=== PATIENT | female | born 1945 | race Caucasian/White ===

== ENCOUNTER 2019-10-15 07:01 | Outpatient (CLI) | payer MEDICARE, OTHER, SELFPAY ==
--- NOTE | ~2019-10-15 | XR_ITS ---
EXAMINATION: XR abdomen/kub 1V INDICATION: Calcium kidney stone TECHNIQUE: Supine view of the abdomen is obtained. COMPARISON: 09/27/2019 FINDINGS: A left internal ureteral stent is in expected position. There is a 2.3 cm stone or cluster of stones in the left kidney lower pole which appears somewhat decreased in density since the compari son examination, possibly due to treatment change. There are possible stone fragments adjacent to the stent projecting at the level of the left L3 transverse process. Multiple pelvic phleboliths are not ed. IMPRESSION: 1. Slight decrease in density of the previously described left kidney stone, likely due to interval t reatment change. Possible stone fragments adjacent to the proximal stent. Reviewed, dictated and finalized at location A. SPORT SPECIALIST IMPRESSION: 1. Slight decrease in density of the previously described left kidney stone, lavern rodriguez due to interval treatment change. Possible stone fragments adjacent to the proximal stent.
== END 2019-10-15 07:02 | disposition home or self-care (01) ==
PROVIDERS: PCP Family Medicine Adolescent Medicine
DX: N20.0 Calculus of kidney (principal)
CPT/HCPCS: 74018

== ENCOUNTER 2020-01-22 14:20 | Outpatient (CLI) | payer MEDICARE, OTHER, SELFPAY ==
--- NOTE | ~2020-01-22 | MM_ITS ---
EXAMINATION: MM screening kami BI w teo HISTORY: Screening mammogram TECHNIQUE: Craniocaudal and mediolateral oblique 3-D tomosynthesis images were obtained and synthetic 2-D images were generated. CAD analysis was submitted and interpreted. COMPARISON: Comparison to multiple prior studies sequentially, with oldest reviewed study dated 12/2015. BREAST PARENCHYMAL COMPOSITION: There are scattered areas of fibroglandular density. FINDINGS: There is no evidence of suspicious mass, calcification, or architectural distortion to sugg est malignancy in either breast. There has been no suspicious interval change. IMPRESSION: 1. No mammographic evidence of malignancy. 2. Recommend routine screening mammography in one year. BI-RADS Category 1: Negative Reviewed, dictated and finalized at location A.
== END 2020-01-22 14:21 | disposition home or self-care (01) ==
LOC: ANHIMG 14:23
PROVIDERS: PCP Family Medicine Adolescent Medicine; Visit Provider Obstetrics & Gynecology
DX: Z12.31 Encounter for screening mammogram for malignant neoplasm of breast (principal)
CPT/HCPCS: 77063; 77067

== ENCOUNTER 2021-01-22 10:36 | Outpatient (CLI) | payer MEDICARE, OTHER, SELFPAY ==
--- NOTE | ~2021-01-22 | MM_ITS ---
EXAMINATION: MM screening kami BI w teo HISTORY: Screening TECHNIQUE: Craniocaudal and mediolateral oblique 3-D tomosynthesis images were obtained and synthetic 2-D images were generated. CAD analysis was submitted and interpreted. COMPARISON: Comparison to multiple prior studies sequentially, with oldest reviewed study dated 12/2015. BREAST PARENCHYMAL COMPOSITION: Breast composed of scattered areas of fibroglandular density FINDINGS: There is no evidence of suspicious mass, calcification, or architectural distortion to sugg est malignancy in either breast. There has been no suspicious interval change. IMPRESSION: 1. No mammographic evidence of malignancy. 2. Recommend routine screening mammography in one year. BI-RADS Category 1: Negative Reviewed, dictated and finalized at location A.
== END 2021-01-22 10:37 | disposition home or self-care (01) ==
LOC: ANHIMG 10:41
PROVIDERS: PCP Family Medicine Adolescent Medicine; Visit Provider Family Medicine Adolescent Medicine
DX: Z12.31 Encounter for screening mammogram for malignant neoplasm of breast (principal)
CPT/HCPCS: 77063; 77067

== ENCOUNTER → 2021-02-09 10:06 | Outpatient (CLI) | payer MEDICARE, OTHER, SELFPAY ==
--- NOTE | ~2021-02-09 | XR_ITS ---
EXAMINATION: XR chest 2V DATE: 02/09/2021 10:25 INDICATION: Shortness of breath. TECHNIQUE: Frontal and lateral views of the chest were obtained. COMPARISON: Chest 2 views 12/08/2010 FINDINGS: The chest demonstrates clear lungs without pneumonia, pleural effusion, or pneumothorax. Th e heart size is normal. IMPRESSION: 1. No acute cardiopulmonary disease. Reviewed, dictated and finalized at location B.
== END ==
PROVIDERS: PCP Family Medicine Adolescent Medicine; Visit Provider Physician Assistant
DX: R06.02 Shortness of breath (principal)
CPT/HCPCS: 71046

== ENCOUNTER 2022-03-26 10:51 | Outpatient (CLI) | payer MEDICARE, OTHER, SELFPAY ==
--- NOTE | ~2022-03-26 | MM_ITS ---
EXAMINATION: MM screening kami BI w teo HISTORY: Screening mammogram, family history of breast cancer in her sister. TECHNIQUE: Craniocaudal and mediolateral oblique 3-D tomosynthesis images were obtained and synthetic 2-D images were generated. CAD analysis was submitted and interpreted. COMPARISON: 01/22/2021, 01/22/2020 BREAST PARENCHYMAL COMPOSITION: There are scattered areas of fibroglandular density. FINDINGS: There is no suspicious mass, calcification, or architectural distortion to suggest malignan cy in either breast. There has been no suspicious interval change. IMPRESSION: 1. No mammographic evidence of malignancy. 2. Recommend routine screening mammography in one year. BI-RADS Category 1: Negative Reviewed, dictated and finalized at location A.
== END 2022-03-26 10:52 | disposition home or self-care (01) ==
LOC: ANHIMG 10:52
PROVIDERS: PCP Family Medicine Adolescent Medicine; Visit Provider Obstetrics & Gynecology
DX: Z12.31 Encounter for screening mammogram for malignant neoplasm of breast (principal)
CPT/HCPCS: 77063; 77067

== ENCOUNTER → 2022-04-21 08:50 | Outpatient (CLI) | payer MEDICARE, OTHER, SELFPAY ==
--- NOTE | ~2022-04-21 | US_ITS ---
EXAMINATION: US aorta DATE: 04/21/2022 09:15 INDICATION: Abdominal aortic aneurysm screening. TECHNIQUE: Grayscale, color Doppler, and pulsed Doppler images of the aorta and common iliac arteries were obtained. COMPARISON: Ultrasound 01/07/2019, CT abdomen and pelvis 05/21/2019 FINDINGS: The aorta is normal in caliber and demonstrates atherosclerosis. The right common iliac artery is nor mal in caliber. The left common iliac artery is normal in caliber. IMPRESSION: 1. Aortic atherosclerosis. No aneurysm. Reviewed, dictated and finalized at location A.
== END ==
PROVIDERS: PCP Family Medicine Adolescent Medicine; Visit Provider Physician Assistant
DX: I70.0 Atherosclerosis of aorta (principal); Z82.49 Family history of ischemic heart disease and other diseases of the circulatory system
CPT/HCPCS: 76775

== ENCOUNTER 2022-10-07 08:15 | Outpatient (CLI) | payer MEDICARE, SELFPAY ==
--- NOTE | ~2022-10-07 | NM_ITS ---
NUCLEAR MEDICINE CARDIAC GATED STRESS TEST: HISTORY: Chest pain. TECHNIQUE: Rest images were obtained following intravenous administration of 10.5 mCi Tc99m Tetrofosm in. The patient was infused intravenously with Lexiscan (regadenoson). Then, 34.6 mCi Tc99m Tetrofosm in was administered intravenously, and stress images were obtained. Data was reconstructed into short axis and horizontal and vertical long axis SPECT images. Gated SPECT images were also obtained. FINDINGS: There is a small area of mild reversibility at the left circumflex distribution near the apex. There is normal left ventricular wall motion. Left ventricular ejection fraction is 74%. IMPRESSION: Small area of mild reversibility at the left circumflex distribution. This could represent an area of ischemia. Consider cardiac catheterization or other additional workup as indicated. Reviewed, dictated and finalized at [facility]. LOPMENT GEOLOGIST IMPRESSION: Small area of mild reversibility at the left circumflex distribution. This coul d represent an area of ischemia. Consider cardiac catheterization or other nam tional workup as indicated.
--- NOTE | 2022-10-07 08:40 | EST_ITS ---
Patient Info Name: Kendra Ying Age: 77 years : 1945 Gender: Female Ht: 65 in Wt: 154 lbs BSA: 1.80 m2 HR: 67 bpm BP: 136 / 74 mmHg Heart Rhythm: Sinus Rhythm Exam Date: 10/07/2022 9:11 AM Exam Location: [facility] Stress Patient Status: Outpatient Admit Date: 10/07/2022 Staff Ordering Physician: Esteban Gonzalez MD Attending Provider: Esteban Gonzalez MD Exercise Technologist: Teresa Walters CT Exercise Physician: Shakir Sheikh DO Exam Type: CA stress vince w NM Study Info Indications R07.9 - Chest pain, unspecified A regadenoson stress test was performed. Summary 1. 1. Negative lexisscan stress test for ischemic ST changes by ECG criteria. 2. 2. Stable hemodynamics throughout the test. 3. 3. Nuclear scan to follow and will be reported separately. Please correlate with it. 4. 4. Patient informed of the above results. Protocol: Lexiscan Stress ECG Details Stage: REST Duration (min): 0 min : 55 sec HR (bpm): 69 SBP (mmHg): 136 DBP (mmHg): 74 Stage: REST Duration (min): 7 min : 38 sec HR (bpm): 69 SBP (mmHg): 136 DBP (mmHg): 74 Stage: STAGE 1 Duration (min): 0 min : 59 sec HR (bpm): 103 SBP (mmHg): 167 DBP (mmHg): 55 Stage: RECOVERY Duration (min): 1 min : 0 sec HR (bpm): 97 SBP (mmHg): 167 DBP (mmHg): 55 Stage: RECOVERY Duration (min): 2 min : 0 sec HR (bpm): 98 SBP (mmHg): 167 DBP (mmHg): 55 Stage: RECOVERY Duration (min): 3 min : 0 sec HR (bpm): 93 SBP (mmHg): 163 DBP (mmHg): 58 Stage: RECOVERY Duration (min): 3 min : 15 sec HR (bpm): 93 SBP (mmHg): 163 DBP (mmHg): 58 Rest HR: 69 bpm Peak HR: 104 bpm Rest Sys BP: 136 mmHg Peak Sys BP: 167 mmHg Max Pred HR: 141 bpm % Max Pred HR: 74 % Target HR: 120 bpm Max RPP: 17,368 bpm*mmHg Termination Reason: Completed protocol Cardiac Symptoms: Chest pain, Shortness of breath Total Time: 1 min : 0 sec Rest Montano BP: 74 mmHg Peak Montano BP: 55 mmHg Total Dose: 0.4 mg Resting ECG Sinus rhythm, PRWP. Stress ECG No ST changes. Arrhythmias Ventricular trigeminy and PVC's. Report Signatures
== END 2022-10-07 08:16 | disposition home or self-care (01) ==
PROVIDERS: PCP Family Medicine Adolescent Medicine; Visit Provider Family Medicine Adolescent Medicine
DX: R07.89 Other chest pain (principal)
CPT/HCPCS: 78452; 93017; A9502; J2785

== ENCOUNTER 2022-11-24 01:30 | Day surgery (SDC) | payer MEDICARE, SELFPAY ==
[2022-11-24] VITALS (9 sets, daily range): BP systolic 140–174; BP diastolic 56–80; PULSE 73–88; RESP 12–23; TEMP 36.2; O2SAT 96–100; BMI 26.0
[2022-11-24 09:06] LABS: Basophils Percent Auto 0.2 % (0.2-1.2); Eosinophils Absolute Auto 0.1 K/mm3 (0-0.3); Eosinophils Percent Auto 1.4 % (0-4.4); Hematocrit 43.4 % (37.0-47.0); Hemoglobin 13.7 g/dL (12.0-15.0); Immature Granulocyte Absolute 0.01 K/mm3 (0.00-0.031); Immature Granulocyte Percent A 0.2 % (0-0.5); Lymphocytes Absolute Auto 1.54 K/mm3 (0.9-3.2); Lymphocytes Percent Auto 27.8 % (18.3-44.2); Mean Corpuscular HGB Conc 31.6 g/dl (32-36); Mean Corpuscular Hemoglobin 27.4 pg (26-34); Mean Corpuscular Volume 86.8 fl (80-100); Mean Platelet Volume 10.2 fl (7.4-10.4); Monocytes Absolute Auto 0.4 K/mm3 (0.1-0.6); Monocytes Percent Auto 7.8 % (2.6-8.5); Neutrophils Absolute Auto 3.5 K/mm3 (1.3-6.7); Neutrophils Percent Auto 62.6 % (45.5-73.1); Platelet Count Result 209 k/mm3 (150-375); Red Cell Distribution Width 14.9 % (11.5-14.5); White Blood Count 5.5 K/mm3 (4.5-10.0)
[2022-11-24 09:17] LABS: Anion Gap 7 mmol/L (8-16); Blood Urea Nitrogen 15 mg/dL (7-17); Calcium 9.4 mg/dL (8.4-10.2); Carbon Dioxide 29 mmol/L (22-30); Chloride 102 mmol/L (98-107); Estimated CRCL calculation 68 ml/min; Estimated Glomerular Filt Rate > 60; Glucose 109 mg/dL (65-110); Potassium 3.5 mmol/L (3.4-5.0); Sodium 138 mmol/L (137-145)
--- NOTE | 2022-11-24 11:39 | PM.IMHP ---
H&P: HPI History of Present Illness Date/Time: 11/24/22 11:39 Chief Complaint: Abnormal stress test Narrative: This is a 77-year-old female with a history of hypertension, hyperlipidemia, diabetes who is referred for [facility] for abnormal stress test. Review of Systems Review of Systems: 12 point ROS obtained. Negative, unless stated in HPI. [facility] Past Medical History Medical History Abnormal mammogram Anxiety Diabetes Hyperlipidemia Hypertension Surgical History Surgical History H/O total hysterectomy (2013) History of knee surgery Family History Family History Mother Hypertension Cerebrovascular accident, Onset Age: 82 Patient's mother is Father Family history of coronary artery disease, Onset Age: 66 Patient's father is Sibling Family history of malignant neoplasm of breast in first degree relative Family history of malignant neoplasm of thyroid, Onset Age: 59 Other Family history of malignant neoplasm of male breast Social History Social History Smoking packs per day: 0.5 Smoking cigarettes per day: 10.0 Years smoked: 60 Smoking pack-years: 30.00 Smoking status: Current every day smoker Tobacco type: cigarettes Smokeless tobacco user: chewing tobacco Second hand tobacco smoke exposure: No Alcohol intake: current Substance use: never Substance use type: does not use Living arrangements: alone Occupation/Education: retired Gender identity (if verbalized by the patient): Female Sexual Orientation (if Verbalized by the Patient): Straight or Heterosexual Spiritual care concerns: No Agree to blood products: Yes Meds Home Medications and Allergies Home Medications Medication Instructions Recorded Confirmed Type potassium gluconate 600 mg (99 mg) 600 mg PO DAILY 07/24/19 11/23/22 History tablet cholecalciferol (vitamin D3) 50 50 mcg PO DAILY 03/28/22 11/23/22 History mcg (2,000 unit) capsule multivitamin (Daily Multi-Vitamin 1 tablet PO DAILY 03/28/22 11/23/22 History tablet) hydrochlorothiazide 25 mg tablet 25 mg PO DAILY #90 tabs 04/18/22 11/23/22 Rx pioglitazone 30 mg tablet 30 mg PO DAILY #90 tabs 05/05/22 11/23/22 Rx metformin 500 mg tablet 1,500 mg PO DAILY #270 tabs 05/30/22 11/23/22 Rx valsartan 320 mg tablet 320 mg PO DAILY #90 tabs 06/22/22 11/23/22 Rx alprazolam 0.5 mg tablet 0.25 mg PO BID 09/05/22 11/23/22 History atorvastatin 20 mg tablet 20 mg PO DAILY #90 tabs 09/20/22 11/23/22 Rx saxagliptin 5 mg tablet (Onglyza) 5 mg PO DAILY #90 tabs 10/17/22 11/23/22 Rx aspirin 81 mg tablet,delayed 81 mg PO DAILY 10/19/22 11/23/22 History release Allergies Allergy/AdvReac Type Severity Reaction Status Date / Time sulfamethizole Allergy Mild ITCHING Verified 11/24/22 08:53 epinephrine AdvReac Intermediate ELEVATE Verified 11/24/22 08:53 BP,SHAKING Vital Signs Vital Signs - 24 hr 11/24/22 09:03 Temperature 36.2 C L Pulse Rate 79 Respiratory Rate 14 Blood Pressure 174/58 H Pulse Oximetry 96 Oxygen Delivery Room Air Exam Const: General: comfortable and no acute distress HENMT: Mouth: Yes moist mucous membranes Eyes: General: appearance normal, both eyes and all related structures Sclera: sclerae normal Neck: Neck: supple Resp: Effort & Inspection: normal respiratory effort Auscultation: clear to auscultation bilaterally Cardio: Rate: regular rate Rhythm: regular rhythm Heart sounds: no murmurs GI: GI Palp: Yes Soft to palpation and No Tenderness to palpation present (GI) Skin: General skin exam: normal color Neuro: Speech: normal speech Extrem: General: normal to inspection Psych: Mental Status: mental status grossly normal Affect: normal affect H&P:
--- NOTE | 2022-11-24 11:45 | WPDMODSED ---
Moderate Sedation Note-Pt Data Patient Data Diagnosis: Abnormal stress test Present Complaint: Abnormal stress test Procedure to be performed/Plan: Coronary angiography, LHC, +/- PCI Allergies Allergy/AdvReac Type Severity Reaction Status Date / Time sulfamethizole Allergy Mild ITCHING Verified 11/24/22 08:53 epinephrine AdvReac Intermediate ELEVATE Verified 11/24/22 08:53 BP,SHAKING Home Medications Medication Instructions Recorded Confirmed Type potassium gluconate 600 mg (99 mg) 600 mg PO DAILY 07/24/19 11/23/22 History tablet cholecalciferol (vitamin D3) 50 50 mcg PO DAILY 03/28/22 11/23/22 History mcg (2,000 unit) capsule multivitamin (Daily Multi-Vitamin 1 tablet PO DAILY 03/28/22 11/23/22 History tablet) hydrochlorothiazide 25 mg tablet 25 mg PO DAILY #90 tabs 04/18/22 11/23/22 Rx pioglitazone 30 mg tablet 30 mg PO DAILY #90 tabs 05/05/22 11/23/22 Rx metformin 500 mg tablet 1,500 mg PO DAILY #270 tabs 05/30/22 11/23/22 Rx valsartan 320 mg tablet 320 mg PO DAILY #90 tabs 06/22/22 11/23/22 Rx alprazolam 0.5 mg tablet 0.25 mg PO BID 09/05/22 11/23/22 History atorvastatin 20 mg tablet 20 mg PO DAILY #90 tabs 09/20/22 11/23/22 Rx saxagliptin 5 mg tablet (Onglyza) 5 mg PO DAILY #90 tabs 10/17/22 11/23/22 Rx aspirin 81 mg tablet,delayed 81 mg PO DAILY 10/19/22 11/23/22 History release Current Medications: Active Medications Sodium Chloride (Normal Saline Iv) 500 mls @ 100 mls/hr IV CONT .Q5H NALDO Sedation/Anesthesia: No previous sedation/anesthesia problems (including family history). [facility] Past Medical History Medical History Abnormal mammogram Anxiety Diabetes Hyperlipidemia Hypertension Surgical History Surgical History H/O total hysterectomy (2013) History of knee surgery Family History Family History Mother Hypertension Cerebrovascular accident, Onset Age: 82 Patient's mother is Father Family history of coronary artery disease, Onset Age: 66 Patient's father is Sibling Family history of malignant neoplasm of breast in first degree relative Family history of malignant neoplasm of thyroid, Onset Age: 59 Other Family history of malignant neoplasm of male breast Social History Social History Smoking packs per day: 0.5 Smoking cigarettes per day: 10.0 Years smoked: 60 Smoking pack-years: 30.00 Smoking status: Current every day smoker Tobacco type: cigarettes Smokeless tobacco user: chewing tobacco Second hand tobacco smoke exposure: No Alcohol intake: current Substance use: never Substance use type: does not use Living arrangements: alone Occupation/Education: retired Gender identity (if verbalized by the patient): Female Sexual Orientation (if Verbalized by the Patient): Straight or Heterosexual Spiritual care concerns: No Agree to blood products: Yes Mod Sed Physical Exam Physical Exam Pre Procedural Exam: Normal: Appearance, Lungs, Heart Rate, Heart Rhythm, Neuro Exam, Abdomen, Extremities and Skin Hours since solid foods: 12 Hours since liquid intake: 8 Mallampati Classification: class III Internal Medicine - PN: Obj Da Vital Signs Vital Signs: Vital Signs - 24 hr 11/24/22 09:03 Temperature 36.2 C L Pulse Rate 79 Respiratory Rate 14 Blood Pressure 174/58 H Pulse Oximetry 96 Oxygen Delivery Room Air Meds/Results Medications: Active Medications Generic Name Dose Route Start Last Admin Trade Name Freq PRN Reason Stop Dose Admin Sodium Chloride 500 mls @ 100 mls/hr 11/24/22 08:30 Normal Saline Iv IV CONT .Q5H NALDO Labs 11/24/22 08:49 11/24/22 08:49 Labs: Laboratory Results - last 24 hr 11/24/22 11/24/22
--- NOTE | 2022-11-24 11:46 | WPDCARDPROC ---
Cardiac Cath Procedure Note Date of procedure:: 11/24/22 Performing physician:: CATHETERIZATION LABORATORY REPORT Procedure Date: 11/24/2022 Newspaper Press Operator Apprentice: Consuelo Rashid M.D., [facility]? Referring Physician: Dr. Sheikh ? Anesthesia: Versed and Fentanyl were ordered and given in my presence at 11:49, procedure ended at 12:16. Supervision of nurse monitored moderate sedation with Versed and Fentanyl was provided for 27 minutes. Total of Versed 2mg and Fentanyl 100mcg were administered by the Slasher Operator RN Viktoriya Guerrero. Pre-op Diagnosis: Coronary artery disease Post-op Diagnosis: Mild-moderate nonobstructive coronary artery disease Left-dominant coronary artery system Elevated left ventricular end-diastolic pressure of 33mmHg Procedure(s): 1. Moderate sedation 2. Ultrasound-guided access of the right common femoral artery 3. Coronary angiography 4. Left heart cath 5. Angioseal closure of the right common femoral artery Access Site: Right common femoral artery Brief History and Clinical Indications: Patient is a 77 year old female with hypertension, hyperlipidemia, diabetes who is referred for [facility] for anginal symptoms in the setting of abnormal stress test. All risks, benefits and alternatives to left heart catheterization with or without percutaneous coronary intervention was discussed at length with the patient. Risk of complications including but not limited to bleeding, infection, arrhythmia, stroke, worsening kidney function, blood loss, groin hematoma, limb loss, emergency coronary artery bypass grafting, and even were discussed with the patient and all questions were answered. The patient understood and wished to proceed. Time out called, patient name, date of , medical record number, allergies, procedure performed, identify Newspaper Press Operator Apprentice, patient and staff member concurred with accurate data, procedure carried on. Findings: LEFT HEART CATHETERIZATION FINDINGS: 1. Left main: The left main coronary artery is widely patent without any significant obstructive disease. 2. Left anterior descending: The proximal-mid LAD is heavily calcific. The ostium of the LAD has mild 30% disease. The LAD has diffuse mild disease without any significant obstructive angiographic disease. The diagonal branches are of small caliber and diffusely diseased. 3. Left circumflex: The left circumflex is the dominant vessel. Calcifications seen in LCX. The LCX has mild luminal irregularities. The LCX branches into the LPL branch and the LPDA. The LPLV has mild diffuse disease. The LPDA has mild-moderate disease of up to 50-60% in its proximal-mid portion; remainder of the vessel is small caliber and with diffuse disease. 4. Right coronary artery: The RCA is the non-dominant vessel. Small caliber vessel. Vessel is calcific. Mild diffuse disease without any significant obstructive angiographic disease. 5. Left ventricle: A. End-diastolic pressure 33mmHg. B. LV gram deferred. C. No significant gradient across aortic valve on catheter pullback. Description of Procedure: Informed consent signed and placed in the chart. Patient transferred to shop laborer room. Prepped and draped in usual sterile fashion. 2% lidocaine in the right wrist area. Unable to cannulate the right radial artery with wire, therefore, femoral access pursued. Sheath was not placed in right radial artery. 2% lidocaine in right groin area. Micropuncture needle used to access right common femoral artery with Seldinger technique under fluoroscopic guidance. J wire advanced, micropuncture cannula placed. Right iliofemoral angiogram performed, access confirmed and micropuncture cannula exchanged for 5-FR sheath. 5F FL4 diagnostic catheter engaged Left Main Coronary Artery. 5F FR4 diagnostic catheter engaged Right Coronary Artery. Multiple orthogonal angiogram obtained and reviewed 5F Pigtail diagnostic catheter crossed aortic valve to obtain LVEDP, LV angiogram deferred. Dorota
== END 2022-11-24 15:54 | disposition home or self-care (01) ==
PROVIDERS: PCP Family Medicine Adolescent Medicine; Visit Provider Internal Medicine
PROC: 4A023N7 Measurement of Cardiac Sampling and Pressure, Left Heart, Percutaneous Approach (ICD-10-PCS; CPT 93452; principal; 2022-11-24 10:00)
DX: I25.10 Atherosclerotic heart disease of native coronary artery without angina pectoris (principal); R94.39 Abnormal result of other cardiovascular function study; I10 Essential (primary) hypertension; E78.5 Hyperlipidemia, unspecified; E11.9 Type 2 diabetes mellitus without complications; F41.9 Anxiety disorder, unspecified; Z79.84 Long term (current) use of oral hypoglycemic drugs; Z79.82 Long term (current) use of aspirin; F17.210 Nicotine dependence, cigarettes, uncomplicated
CPT/HCPCS: 36415; 80048; 85025; 93458; A9270; C1760; C1769; C1887; C1894; G0269; J1644; J2250; J3010; J7040

== ENCOUNTER 2023-05-09 07:15 | Outpatient (CLI) | payer MEDICARE, SELFPAY ==
--- NOTE | ~2023-05-09 | MM_ITS ---
EXAMINATION: MM screening kami BI w teo HISTORY: Screening mammogram TECHNIQUE: Craniocaudal and mediolateral oblique 3-D tomosynthesis images were obtained and synthetic 2-D images were generated. CAD analysis was submitted and interpreted. COMPARISON: 03/26/2022, 01/22/2021, 01/22/2020 bilateral screening mammogram examinations BREAST PARENCHYMAL COMPOSITION: There are scattered areas of fibroglandular density. FINDINGS: Scattered bilateral benign calcifications. There is no evidence of suspicious mass, calcifi cation, or architectural distortion to suggest malignancy in either breast. There has been no suspici ous interval change. IMPRESSION: 1. No mammographic evidence of malignancy. 2. Recommend routine screening mammography in one year. BI-RADS Category 1: Negative Reviewed, dictated and finalized at location A.
== END 2023-05-09 07:16 | disposition home or self-care (01) ==
PROVIDERS: PCP Family Medicine Adolescent Medicine; Visit Provider Obstetrics & Gynecology
DX: Z12.31 Encounter for screening mammogram for malignant neoplasm of breast (principal)
CPT/HCPCS: 77063; 77067

== ENCOUNTER 2024-04-09 09:50 | Outpatient (CLI) | payer MEDICARE, SELFPAY ==
--- NOTE | 2024-04-10 20:39 | P.PCNPFT_ITS ---
PFT Procedure Performed PFT Procedure Performed Spirometry with Pre/Post Bronchodilator Plethysmography (Lung Vol) Diffusing Cap (DLCO) Flow Vol Loop PFT Interpretation DOS: 04/09/2024 REQUESTING: Esteban Gonzalez MD REASON FOR TESTING: dyspnea, chest pain PULMONARY FUNCTION TESTS Repeatability of spirometry FEV1 maneuver pre bronchodilator is Grade B. Repeatability of spirometry FEV1 post-bronchodilator is Grade A. Spirometry: The pre-bronchodilator FEV1 is 1.99 L, 100%, normal. The pre- bronchodilator FVC is 2.71 L, 103%, normal. The FEV1/FVC ratio is 73%, normal. After bronchodilator, the FEV1 is 2.09 L, 105%, +5%. The post- bronchodilator FVC is 2.65 L, 101%, -2%. The FEV1/FVC ratio is 79%, normal. The FEF 25-75% is 1.45 L, 92%, normal at baseline. After bronchodilator the HNG00-07% is 2.06%, 130%, +42%. This is likely not a significant finding as the baseline values was normal. Lung volumes: The total lung capacity is 4.47 L, 86%, normal. The residual volume is 1.46 L, 60%, decreased. The RV/TLC is 33%, below the lower limit of normal. Airway resistance is increased. Diffusion: DLCO is 17.8, 90%, normal. The DLCO/VA is 3.91 L, 96%, normal. Flow volume loop: The flow volume loop is normal. IMPRESSION: Normal spirometry, normal lung volumes and normal diffusion. No significant response to bronchodilator. No prior studies for comparison. Sophia De Jesus MD
== END 2024-04-09 09:51 | disposition home or self-care (01) ==
LOC: ANHPFT 09:52
PROVIDERS: PCP Family Medicine Adolescent Medicine; Visit Provider Family Medicine Adolescent Medicine
DX: R07.9 Chest pain, unspecified (principal); R06.00 Dyspnea, unspecified
CPT/HCPCS: 94060; 94726; 94729

== ENCOUNTER 2024-05-15 07:33 | Outpatient (CLI) | payer MEDICARE, SELFPAY ==
--- NOTE | ~2024-05-15 | MM_ITS ---
EXAMINATION: MM screening kami BI w teo HISTORY: Screening TECHNIQUE: Craniocaudal and mediolateral oblique 3-D tomosynthesis images were obtained and synthetic 2-D images were generated. CAD analysis was submitted and interpreted. COMPARISON: Comparison to multiple prior studies sequentially, with oldest reviewed study dated 12/28. BREAST PARENCHYMAL COMPOSITION: Not dense: There are scattered areas of fibroglandular density. FINDINGS: Bilateral breast asymmetries are stable. There is no evidence of suspicious mass, calcifica tion, or architectural distortion to suggest malignancy in either breast. There has been no suspiciou s interval change. IMPRESSION: 1. No mammographic evidence of malignancy. 2. Recommend routine screening mammography in one year. BI-RADS Category 1: Negative Reviewed, dictated and finalized at location B.
== END 2024-05-15 07:34 ==
PROVIDERS: PCP Family Medicine Adolescent Medicine; Visit Provider Family Medicine Adolescent Medicine
DX: Z12.31 Encounter for screening mammogram for malignant neoplasm of breast (principal)
CPT/HCPCS: 77063; 77067

== ENCOUNTER 2025-05-15 08:40 | Outpatient (CLI) | payer MEDICARE, SELFPAY ==
--- NOTE | ~2025-05-15 | MM_ITS ---
EXAMINATION: MM screening [facility] BI w teo HISTORY: Screening TECHNIQUE: Craniocaudal and mediolateral oblique 3-D tomosynthesis images were obtained and synthetic 2-D images were generated. CAD analysis was submitted and interpreted. COMPARISON: Comparison to multiple prior studies sequentially, with oldest reviewed study dated 01/09/2019. BREAST PARENCHYMAL COMPOSITION: There are scattered areas of fibroglandular density. FINDINGS: There is no evidence of suspicious mass, calcification, or architectural distortion to suggest malignancy in either breast. Scattered benign-appearing calcifications are present. IMPRESSION: 1. No mammographic evidence of malignancy. 2. Recommend routine screening mammography in one year. BI-RADS Category 2: Benign finding(s). Reviewed, dictated and finalized at location B.
== END 2025-05-15 08:41 | disposition home or self-care (01) ==
LOC: MICIMG 08:41
PROVIDERS: PCP Family Medicine Adolescent Medicine; Visit Provider Family Medicine Adolescent Medicine
DX: Z12.31 Encounter for screening mammogram for malignant neoplasm of breast (principal)
CPT/HCPCS: 77063; 77067